=== PATIENT | male | born 1955 | race African-American/Black ===

== ENCOUNTER 2024-05-28 11:44 | Observation (INO) ==
[2024-05-28 12:37] LABS: ABS Eosinophils 0.4 10^3/uL (0.0-0.5); ABS Lymphocytes 3.6 10^3/uL (1.0-4.8); ABS Monocytes 0.5 10^3/uL (0.0-1.1); ABS Nucleated RBC 0.01 10^3/ul; Eosinophil % 4.3 %; Hematocrit 40.4 % (38-53); Hemoglobin 13.5 g/dL (13.2-16.3); Lymphocyte % 37.8 %; Mean Corpuscular Hemoglobin 28.9 pg (27-33); Mean Corpuscular Hgb Conc 33.4 g/dL (31-36); Mean Corpuscular Volume 86.5 fL (80-97); Mean Platelet Volume 7.7 fL (7.5-11.2); Nucleated Red Blood Cells % 0.1 %/100WBC (0.0-0.8); Platelet Count 272 10^3/uL (150-450); Red Blood Count 4.67 10^6/uL (4.06-5.63); Red Cell Distribution Width 16.1 % (12-17); White Blood Count 9.6 10^3/uL (3.6-10.2)
[2024-05-28] MEDS ORDERED: Midazolam 5 mg/5 ml VIAL 1 mg/ml 5 ml VIAL (5 mg) ONE (12:42)
[2024-05-28] MEDS ORDERED: fentaNYL 100 mcg/2 ml 50 MCG/ML VIAL ONE ×2 (12:42→14:46)
[2024-05-28] MEDS ORDERED: Lidocaine 1% VIAL 10 MG/ML 30 ML VIAL ONE (12:43)
[2024-05-28] MEDS ORDERED: Heparin 2 UNITS/ML IVPREMIX 3,000 UNIT/1,500 ML BAG IV ONE (12:43)
[2024-05-28] MEDS ORDERED: Iohexol 350 (CONTRAST) 100 ML PAK IV ONE ×2 (12:43→12:59)
[2024-05-28 12:48] LABS: Activated Partial Thrombo Time 31.9 seconds (26.0-38.0); INR 1.11 (0.83-1.13)
[2024-05-28 13:23] LABS: Albumin 4.5 g/dL (3.2-5.2); Albumin/Globulin Ratio 1.5 (1-3); Calcium 9.7 mg/dL (8.6-10.3); Creatinine, Serum 0.95 mg/dL (0.67-1.17); Globulin 3.1 g/dL (2-4); Potassium 4.5 mmol/L (3.5-5.0); Total Bilirubin 0.6 mg/dL (0.2-1.0); Total Protein 7.6 g/dL (6.4-8.9); eGFR CKD-EPI 87.7 (>60)
[2024-05-28] MEDS ORDERED: Ondansetron 4 mg VIAL 2 MG/ML 2 ml VIAL ONE (13:56)
[2024-05-28] MEDS ORDERED: Prochlorperazine 5 mg/ml 2 ml VIAL (10 mg) ONE ×2 (14:39→15:39)
[2024-05-28] MEDS ORDERED: Ondansetron 4 mg VIAL 2 MG/ML 2 ml VIAL IV PRN (14:48)
[2024-05-28] MEDS ORDERED: Magnesium Hydroxide LIQ 30 ML UDC PO PRN (14:48)
[2024-05-28] MEDS ORDERED: HYDROmorphone 0.5 MG/0.5 ML SYRINGE ONE ×2 (14:52→15:15)
[2024-05-28] MEDS: Prochlorperazine 5 mg/ml 2 ml VIAL (10 mg) IV ONE (15:40)
[2024-05-28] MEDS ORDERED: HYDROmorphone 1 MG/1 ML SYRINGE ONE (16:48)
[2024-05-28] MEDS: HYDROmorphone 0.5 MG/0.5 ML SYRINGE IV SLOW PU PRN (16:51)
[2024-05-28] MEDS: cefTRIAXone 1 gm/50 mL D5W 1 GM/50 ML BAG IV ONE (17:57)
[2024-05-28] MEDS: [UNRECOGNIZED DRUG - OTHER] ONE (17:58)
[2024-05-28] MEDS: Enoxaparin 40 MG/0.4 ML SYR SUBCUT SCH (18:26)
[2024-05-28] MEDS: NS 0.9% 1000 ml BAG 1,000 ML IV SCH (18:26)
[2024-05-28] MEDS ORDERED: HYDROmorphone 0.5 MG/0.5 ML SYRINGE IV SLOW PU PRN ×2 (20:17→20:19)
[2024-05-28] MEDS ORDERED: HYDROmorphone 1 MG/1 ML SYRINGE IV SLOW PU PRN ×2 (20:18→23:16)
[2024-05-28] MEDS: HYDROmorphone 1 MG/1 ML SYRINGE IV SLOW PU PRN ×2 (20:51→23:50)
[2024-05-29 06:06] LABS: ABS Lymphocytes 1.2 10^3/uL (1.0-4.8); ABS Monocytes 0.8 10^3/uL (0.0-1.1); ABS Neutrophils 14.6 10^3/uL (1.5-7.6); Eosinophil % 0.1 %; Hematocrit 44.7 % (38-53); Hemoglobin 14.8 g/dL (13.2-16.3); Lymphocyte % 7.1 %; Mean Corpuscular Hemoglobin 28.3 pg (27-33); Mean Corpuscular Hgb Conc 33.1 g/dL (31-36); Mean Corpuscular Volume 85.6 fL (80-97); Mean Platelet Volume 7.8 fL (7.5-11.2); Platelet Count 239 10^3/uL (150-450); Red Blood Count 5.22 10^6/uL (4.06-5.63); Red Cell Distribution Width 15.9 % (12-17); White Blood Count 16.7 10^3/uL (3.6-10.2)
[2024-05-29 06:27] LABS: Albumin 4.7 g/dL (3.2-5.2); Albumin/Globulin Ratio 1.3 (1-3); Calcium 9.9 mg/dL (8.6-10.3); Creatinine, Serum 0.64 mg/dL (0.67-1.17); Globulin 3.5 g/dL (2-4); Magnesium 1.8 mg/dL (1.9-2.7); Potassium 3.8 mmol/L (3.5-5.0); Total Bilirubin 0.9 mg/dL (0.2-1.0); Total Protein 8.2 g/dL (6.4-8.9); eGFR CKD-EPI 103.8 (>60)
[2024-05-29] MEDS: HYDROcodone/Acetamin 10/325 TAB (NF) PO PRN (10:50)
== END 2024-05-29 15:00 | disposition home or self-care (01) ==
LOC: CHICATH 11:44 → MEDTELE 11:44
PROVIDERS: ADMIT Internal Medicine Hematology & Oncology; ATTEND Student in an Organized Health Care Education/Training Program

== ENCOUNTER 2024-12-09 11:32 | Observation (INO) ==
[2024-12-09] MEDS: Lactated Ringers 1000 ml BAG 1,000 ML IV SCH (12:45)
[2024-12-09 13:03] LABS: ABS Lymphocytes 1.4 10^3/uL (1.0-4.8); ABS Monocytes 1.1 10^3/uL (0.0-1.1); ABS Neutrophils 10.8 10^3/uL (1.5-7.6); Hematocrit 47.7 % (38-53); Hemoglobin 16.2 g/dL (13.2-16.3); Lymphocyte % 10.2 %; Mean Corpuscular Hemoglobin 28.8 pg (27-33); Mean Corpuscular Hgb Conc 33.9 g/dL (31-36); Mean Platelet Volume 7.9 fL (7.5-11.2); Platelet Count 291 10^3/uL (150-450); Red Blood Count 5.61 10^6/uL (4.06-5.63); White Blood Count 13.3 10^3/uL (3.6-10.2)
[2024-12-09 13:19] LABS: Activated Partial Thrombo Time 41.5 seconds (26.0-38.0); INR 1.13 (0.85-1.14)
[2024-12-09 13:29] LABS: Albumin 3.3 g/dL (3.5-5.7); Albumin/Globulin Ratio 0.9 (1-3); C Reactive Protein 152.49 mg/L (<8.01); Calcium 8.8 mg/dL (8.6-10.3); Creatinine, Serum 1.41 mg/dL (0.67-1.17); Globulin 3.7 g/dL (2-4); Potassium 4.5 mmol/L (3.5-5.0); Total Bilirubin 2.2 mg/dL (0.2-1.0); eGFR CKD-EPI 54.3 (>60)
[2024-12-09] MEDS: Iohexol 350 (CONTRAST) 500 ML MDV IV ONE (13:57)
[2024-12-09 14:37] LABS: Urine Appearance Turbid; Urine Bilirubin Negative (Negative); Urine Blood Trace (Negative); Urine Color Yellow; Urine Glucose Negative (Negative); Urine Ketones Negative (Negative); Urine Nitrite Negative (Negative); Urine Protein 1+ (>=30 mg/dL) (Negative); Urine Specific Gravity 1.034 (1.002-1.030); Urine Urobilinogen Negative (Negative); Urine pH 5.5 (5.0-8.0)
[2024-12-09 14:41] LABS: Urine Bacteria Absent /HPF (Absent); Urine Red Blood Cell 1+(3-5/hpf) /HPF (0-Trace); Urine Squamous Epithelial Cell Present /HPF (Absent); Urine White Blood Cell Trace(0-5/hpf) /HPF (0-Trace)
[2024-12-09 15:02] LABS: High Sensitivity Troponin 1 Hr 22 pg/mL (<20)
[2024-12-09 15:33] LABS: Direct Bilirubin 1.1 mg/dL (0.03-0.18); Indirect Bilirubin 1.1 mg/dL (0.3-1.0)
[2024-12-09] MEDS: Lactated Ringers 1000 ml BAG 1,000 ML IV ONE (17:25)
[2024-12-09] MEDS ORDERED: Naloxone Nasal Spray 4 MG/0.1 ML NASAL.SPR INTRANASAL PRN (18:42)
[2024-12-09 19:18] LABS: Osmolality Serum 286 mOsm/kg (275-295)
[2024-12-09] MEDS: cefTRIAXone 1 gm/50 mL D5W 1 GM/50 ML BAG IV SCH (19:21)
[2024-12-09 19:35] LABS: TSH Ultra Thyroid Stim Horm 4.92 mcIU/mL (0.34-5.60)
[2024-12-09] MEDS: Enoxaparin 30 MG/0.3 ML SYR SUBCUT SCH (19:59)
[2024-12-09] MEDS: Azithromycin 500 mg/250 ml NS 500 MG/250 ML BAG IVPB SCH (20:01)
[2024-12-09] MEDS: Labetalol IV 5 MG/ML 20 ml VIAL IV PUSH ONE (20:37)
[2024-12-09] MEDS ORDERED: Heparin 5000 UNITS/ML 1 mL VIAL SUBCUT SCH (22:00)
[2024-12-09] MEDS: NS 0.9% 1000 ml BAG 1,000 ML IV SCH (22:12)
[2024-12-10 01:55] LABS: Urine Osmo 434 mOsm/kg (150-1150)
[2024-12-10] MEDS: HYDROcodone/Acetamin 10/325 TAB (NF) PO PRN (05:46)
[2024-12-10 06:12] LABS: ABS Lymphocytes 1.7 10^3/uL (1.0-4.8); ABS Neutrophils 6.1 10^3/uL (1.5-7.6); ABS Nucleated RBC 0.02 10^3/ul; Hematocrit 40.2 % (38-53); Hemoglobin 13.8 g/dL (13.2-16.3); Lymphocyte % 19.2 %; Mean Corpuscular Hgb Conc 34.3 g/dL (31-36); Mean Corpuscular Volume 84.6 fL (80-97); Mean Platelet Volume 7.9 fL (7.5-11.2); Nucleated Red Blood Cells % 0.2 %/100WBC (0.0-0.8); Platelet Count 222 10^3/uL (150-450); Red Blood Count 4.75 10^6/uL (4.06-5.63); White Blood Count 8.8 10^3/uL (3.6-10.2)
[2024-12-10 07:48] LABS: Albumin 2.7 g/dL (3.5-5.7); Albumin/Globulin Ratio 0.9 (1-3); Calcium 7.8 mg/dL (8.6-10.3); Creatinine, Serum 0.71 mg/dL (0.67-1.17); Globulin 3.1 g/dL (2-4); Magnesium 1.9 mg/dL (1.9-2.7); Phosphorus 3.2 mg/dL (2.5-5.0); Potassium 4.2 mmol/L (3.5-5.0); Total Bilirubin 1.8 mg/dL (0.2-1.0); Total Protein 5.8 g/dL (6.4-8.9); eGFR CKD-EPI 99.9 (>60)
[2024-12-10] MEDS: Lactated Ringers 1000 ml BAG 1,000 ML IV SCH (11:56)
[2024-12-10] MEDS: Enoxaparin 40 MG/0.4 ML SYR SUBCUT SCH (21:28)
[2024-12-11 06:50] LABS: Hematocrit 39.9 % (38-53); Hemoglobin 13.7 g/dL (13.2-16.3); Mean Corpuscular Hgb Conc 34.3 g/dL (31-36); Mean Corpuscular Volume 84.7 fL (80-97); Mean Platelet Volume 8.1 fL (7.5-11.2); Platelet Count 202 10^3/uL (150-450); Red Blood Count 4.71 10^6/uL (4.06-5.63); Red Cell Distribution Width 16.3 % (12-17); White Blood Count 7.7 10^3/uL (3.6-10.2)
[2024-12-11 07:22] LABS: Albumin 2.5 g/dL (3.5-5.7); Albumin/Globulin Ratio 0.9 (1-3); Calcium 7.5 mg/dL (8.6-10.3); Creatinine, Serum 0.56 mg/dL (0.67-1.17); Globulin 2.9 g/dL (2-4); Magnesium 1.9 mg/dL (1.9-2.7); Potassium 3.3 mmol/L (3.5-5.0); Total Bilirubin 1.9 mg/dL (0.2-1.0); Total Protein 5.4 g/dL (6.4-8.9); eGFR CKD-EPI 107.4 (>60)
[2024-12-11 07:54] LABS: ABS Lymphocytes 1.9 10^3/uL (1.0-4.8); ABS Monocytes 1.3 10^3/uL (0.0-1.1); ABS Neutrophils 4.5 10^3/uL (1.5-7.6); ABS Nucleated RBC 0.01 10^3/ul; Lymphocyte % 24.4 %; Nucleated Red Blood Cells % 0.1 %/100WBC (0.0-0.8)
[2024-12-11 07:55] LABS: RBC Morphology Normal (Normal)
[2024-12-11] MEDS: Magnesium Sulfate IV 1GM/100ML 1 GM/100 ML BAG IV ONE (08:27)
[2024-12-11] MEDS: Polyethylene Glycol 3350 17 GM PACKET PO SCH (08:33)
[2024-12-11] MEDS: Potassium Chlor 20 meq TAB.ER PO ONE (08:33)
[2024-12-11] MEDS: Azithromycin 500 mg/250 ml NS 500 MG/250 ML BAG IVPB ONE (12:39)
[2024-12-11 15:15] VITALS: BP 136/81
== END 2024-12-11 18:37 | disposition home or self-care (01) ==
LOC: EDHOLD 11:32 → ED 11:32 → MED 20:23
PROVIDERS: ADMIT Internal Medicine; ATTEND Internal Medicine